=== PATIENT | male | born 1990 | race Hispanic/Latino ===

== ENCOUNTER 2024-04-26 13:45 | Outpatient (CLI) | payer BC | END 2024-04-26 13:46 | disposition home or self-care (01) | LOC: CSHCT 13:45 | PROVIDERS: ATTEND Internal Medicine | DX: M54.50 Low back pain, unspecified (principal); R10.30 Lower abdominal pain, unspecified; R35.0 Frequency of micturition; Q63.2 Ectopic kidney; M47.816 Spondylosis without myelopathy or radiculopathy, lumbar region | CPT/HCPCS: 74176 ==